=== PATIENT | female | born 1945 | race Caucasian/White ===

== ENCOUNTER 2019-09-08 10:11 | Observation (INO) ==
[2019-09-08] MEDS ORDERED: ACETAMINOPHEN 325 MG TABLET PO PRN (11:01)
[2019-09-08] MEDS ORDERED: ONDANSETRON 4 MG/2 ML VIAL IV PRN (11:01)
[2019-09-08 11:49] LABS: Basophils % 0.2 % (0.0-0.8); Eosinophils % 0.5 % (0.00-10.9); Hematocrit 41.8 VOL% (35.7-47.0); Hemoglobin 13.4 GM/DL (12.0-16.0); Immature Granulocytes % 0.3 %; Immature Granulocytes Absolute 0.02 #; Lymphocytes # 1.2 10*3/uL (1.4-4.0); Lymphocytes % 18.7 % (21.3-54.2); Mean Corpuscular HGB Conc 32.1 GM/DL (32-36); Mean Corpuscular Volume 88.2 FL (87-102); Mean Platelet Volume 10.1 FL (9.6-12.0); Monocytes % 10.4 % (1.7-12.7); Neutrophils % 69.9 % (38.7-73.9); Platelet Count 231 T/CUMM (130-400); Red Blood Count 4.74 MC/CUMM (3.8-5.5); Red Cell Distribution Width 13.6 % (9.3-17.3); White Blood Count 6.5 T/CUMM (4-12)
[2019-09-08] MEDS ORDERED: MEROPENEM 500 MG in SODIUM CHLORIDE 0.9% 100 ML IV SCH (12:00)
[2019-09-08] MEDS: PIPERACILLIN/TAZOBACTAM 3,375 MG in SODIUM CHLORIDE 0.9% 100 ML IV SCH ×2 (12:13→21:37)
[2019-09-08 12:19] LABS: Albumin 3.5 G/DL (3.4-5.0); Bilirubin,Total 0.8 MG/DL (0.2-1.0); Calcium 9.4 MG/DL (8.5-10.1); Total Protein 8.7 G/DL (6.4-8.3)
[2019-09-08] MEDS: ENOXAPARIN 40 MG/0.4 ML SYRINGE SUBCUT SCH (13:39)
[2019-09-08 20:21] LABS: Amorphous Crystals,Urine Occasional /HPF (Few); Apearance,Urine CLOUDY (Clear); Bacteria,Urine Occasional /HPF (Few); Bilirubin,Urine Negative (Negative); Blood, Urine Small mg/dL (Negative); Glucose,Urine (UA) Negative (Negative); Ketones,Urine Negative (Negative); Mucus,Urine Occasional /LPF (Occasional); Nitrite,Urine Negative (Negative); Protein,Urine Negative; RBC,Urine 3 /HPF (0-4); Squamous Epithelial Cell,Urine Occasional /HPF (0-10); Urine Color Yellow (Yellow); Urine Specific Gravity 1.015 (1.001-1.035); Urine Urobilinogen < 2.0 EU/DL (0.2-1.0)
[2019-09-08] MEDS: DOCUSATE SODIUM 100 MG CAPSULE PO SCH (21:37)
[2019-09-09] MEDS: PIPERACILLIN/TAZOBACTAM 3,375 MG in SODIUM CHLORIDE 0.9% 100 ML IV SCH ×3 (05:01→19:26)
[2019-09-09 05:50] LABS: Basophils % 0.3 % (0.0-0.8); Eosinophils # 0.1 10*3/uL (0.0-0.87); Eosinophils % 1.1 % (0.00-10.9); Hematocrit 39.2 VOL% (35.7-47.0); Hemoglobin 12.8 GM/DL (12.0-16.0); Immature Granulocytes % 0.3 %; Immature Granulocytes Absolute 0.02 #; Lymphocytes # 1.3 10*3/uL (1.4-4.0); Lymphocytes % 17.8 % (21.3-54.2); Mean Corpuscular HGB Conc 32.7 GM/DL (32-36); Mean Corpuscular Volume 87.3 FL (87-102); Mean Platelet Volume 9.9 FL (9.6-12.0); Monocytes % 10.1 % (1.7-12.7); Neutrophils % 70.4 % (38.7-73.9); Platelet Count 245 T/CUMM (130-400); Red Blood Count 4.49 MC/CUMM (3.8-5.5); Red Cell Distribution Width 13.5 % (9.3-17.3); White Blood Count 7.5 T/CUMM (4-12)
[2019-09-09 06:10] LABS: Albumin 3.2 G/DL (3.4-5.0); Calcium 9.1 MG/DL (8.5-10.1); Total Protein 8.1 G/DL (6.4-8.3)
[2019-09-09] MEDS: LOSARTAN 50 MG TABLET PO SCH (08:36)
[2019-09-09] MEDS: PANTOPRAZOLE 40 MG TABLET PO SCH (08:36)
[2019-09-09] MEDS: DOCUSATE SODIUM 100 MG CAPSULE PO SCH ×2 (08:36→20:23)
[2019-09-09] MEDS: hydroCHLOROthiazide 12.5 MG CAPSULE PO SCH (08:36)
[2019-09-09] MEDS ORDERED: diphenhydrAMINE CAP 25 MG CAPSULE PO ONE (09:29)
[2019-09-09] MEDS ORDERED: methylPREDNISolone SOD SUC 125 MG/2 ML VIAL IV ONE (09:30)
[2019-09-09] MEDS: ENOXAPARIN 40 MG/0.4 ML SYRINGE SUBCUT SCH (12:40)
[2019-09-09] MEDS ORDERED: hydrALAZINE 20 MG/1 ML VIAL IV PRN (14:46)
[2019-09-09] MEDS: DOXYCYCLINE HYCLATE 100 MG CAPSULE PO SCH (16:31)
[2019-09-10] MEDS: PIPERACILLIN/TAZOBACTAM 3,375 MG in SODIUM CHLORIDE 0.9% 100 ML IV SCH ×3 (03:26→21:18)
[2019-09-10] MEDS: PANTOPRAZOLE 40 MG TABLET PO SCH (09:14)
[2019-09-10] MEDS: DOCUSATE SODIUM 100 MG CAPSULE PO SCH ×2 (09:14→21:18)
[2019-09-10] MEDS: DOXYCYCLINE HYCLATE 100 MG CAPSULE PO SCH ×2 (09:14→16:13)
[2019-09-10] MEDS: hydroCHLOROthiazide 12.5 MG CAPSULE PO SCH (09:14)
[2019-09-10] MEDS: LOSARTAN 50 MG TABLET PO SCH (09:14)
[2019-09-10] MEDS: ENOXAPARIN 40 MG/0.4 ML SYRINGE SUBCUT SCH (11:45)
[2019-09-11] MEDS: PIPERACILLIN/TAZOBACTAM 3,375 MG in SODIUM CHLORIDE 0.9% 100 ML IV SCH (04:07)
[2019-09-11] MEDS: PANTOPRAZOLE 40 MG TABLET PO SCH (08:22)
[2019-09-11] MEDS: LOSARTAN 50 MG TABLET PO SCH (08:22)
[2019-09-11] MEDS: DOCUSATE SODIUM 100 MG CAPSULE PO SCH (08:22)
[2019-09-11] MEDS: DOXYCYCLINE HYCLATE 100 MG CAPSULE PO SCH (08:22)
[2019-09-11] MEDS: hydroCHLOROthiazide 12.5 MG CAPSULE PO SCH (08:22)
[2019-09-11 10:13] VITALS: BP 125/63
== END 2019-09-11 11:20 | disposition home or self-care (01) ==
LOC: N.5E
PROVIDERS: ADMIT Family Medicine; ATTEND Family Medicine

== ENCOUNTER 2022-06-23 05:27 | Inpatient (IN) ==
[2022-06-23] MEDS ORDERED: VANCOMYCIN INJ 1,000 MG in SODIUM CHLORIDE 0.9% 250 ML IV ONE (06:00)
[2022-06-23] MEDS ORDERED: ceFAZolin 2,000 MG/50 ML DUPLEX IV ONE (06:00)
[2022-06-23] MEDS ORDERED: LACTATED RINGERS 1,000 ML IV SCH (08:30)
[2022-06-23] MEDS ORDERED: BACITRACIN OINT 0.9 GM PACK TOP ONE (09:38)
[2022-06-23] MEDS ORDERED: propofoL 200 MG/20 ML VIAL IV ONE ×2 (10:07→12:16)
[2022-06-23] MEDS ORDERED: BUPIVACAINE SPINAL 0.75% 2 ML AMP SPINAL ONE (10:07)
[2022-06-23] MEDS ORDERED: fentaNYL 100 MCG/2 ML VIAL ONE (10:07)
[2022-06-23] MEDS ORDERED: LIDOCAINE 2% 5 ML VIAL ONE (10:07)
[2022-06-23] MEDS ORDERED: MIDAZOLAM 2 MG/2 ML VIAL ONE (10:07)
[2022-06-23] MEDS ORDERED: BUPIVACAINE MPF 0.5% 30 ML VIAL ONE (10:39)
[2022-06-23] MEDS ORDERED: LIDOCAINE 1% 5 ML VIAL ONE (10:40)
[2022-06-23] MEDS ORDERED: MAGNESIUM HYDROXIDE SUSP 30 ML UDCUP PO PRN (11:36)
[2022-06-23] MEDS ORDERED: diphenhydrAMINE CAP 25 MG CAPSULE PO PRN (11:37)
[2022-06-23] MEDS ORDERED: diphenhydrAMINE 50 MG/1 ML VIAL ONE (11:39)
[2022-06-23] MEDS ORDERED: TRANEXAMIC ACID 1,000 MG/10 ML VIAL ONE (12:31)
[2022-06-23] MEDS ORDERED: PHENYLEPHRINE 1 MG/10 ML SYRINGE IV ONE (12:47)
[2022-06-23] MEDS ORDERED: ePHEDrine 50 MG/ML VIAL ONE (12:49)
[2022-06-23] MEDS ORDERED: SODIUM CHLORIDE 0.9% 250 ML IV ONE (13:16)
[2022-06-23] MEDS: LACTATED RINGERS 1,000 ML IV SCH ×2 (14:48→20:55)
[2022-06-23] MEDS: MORPHINE 2 MG/1 ML SYRINGE IV PRN ×3 (15:30→22:57)
[2022-06-23] MEDS: APIXABAN 2.5 MG TABLET PO SCH (20:56)
[2022-06-23] MEDS: DOCUSATE SODIUM 100 MG CAPSULE PO SCH (20:56)
[2022-06-23] MEDS: POTASSIUM CHLORIDE 10 MEQ TABLET PO SCH (20:56)
[2022-06-24 03:19] LABS: Basophils % 0.1 % (0.0-0.8); Hemoglobin 11.6 GM/DL (12.0-16.0); Immature Granulocytes % 0.5 %; Immature Granulocytes Absolute 0.04 #; Lymphocytes # 0.7 10*3/uL (1.4-4.0); Lymphocytes % 8.5 % (21.3-54.2); Mean Corpuscular HGB Conc 32.2 GM/DL (32-36); Mean Corpuscular Volume 90.2 FL (87-102); Mean Platelet Volume 9.6 FL (9.6-12.0); Monocytes # 0.8 10*3/uL (0.11-0.8); Monocytes % 9.6 % (1.7-12.7); Neutrophils % 81.3 % (38.7-73.9); Platelet Count 174 T/CUMM (130-400); Red Blood Count 3.99 MC/CUMM (3.8-5.5); Red Cell Distribution Width 13.4 % (9.3-17.3); White Blood Count 8.6 T/CUMM (4-12)
[2022-06-24 03:33] LABS: Calcium 8.9 MG/DL (8.5-10.1); Osmolality,Calculated 276.7 MOS/KG (273-304); Potassium 3.5 MMOL/L (3.5-5.1)
[2022-06-24] MEDS: LACTATED RINGERS 1,000 ML IV SCH (04:28)
[2022-06-24] MEDS: MORPHINE 2 MG/1 ML SYRINGE IV PRN ×2 (04:32→04:48)
[2022-06-24] MEDS: DOCUSATE SODIUM 100 MG CAPSULE PO SCH ×2 (08:05→20:25)
[2022-06-24] MEDS: PANTOPRAZOLE 40 MG TABLET PO SCH (08:05)
[2022-06-24] MEDS: FENOFIBRATE 145 MG TABLET PO SCH (08:05)
[2022-06-24] MEDS: LETROZOLE 2.5 MG TABLET PO SCH (08:05)
[2022-06-24] MEDS: LOSARTAN 25 MG TABLET PO SCH (08:05)
[2022-06-24] MEDS: POTASSIUM CHLORIDE 10 MEQ TABLET PO SCH ×2 (08:06→20:25)
[2022-06-24] MEDS: APIXABAN 2.5 MG TABLET PO SCH ×2 (08:06→20:25)
[2022-06-24] MEDS ORDERED: traMADol 50 MG TABLET PO PRN (14:19)
[2022-06-24] MEDS ORDERED: hydrALAZINE 20 MG/1 ML VIAL IV PRN (14:19)
[2022-06-24] MEDS: ONDANSETRON 4 MG/2 ML VIAL IV PRN (17:18)
[2022-06-25 03:27] LABS: Basophils % 0.1 % (0.0-0.8); Eosinophils % 0.4 % (0.00-10.9); Hematocrit 33.8 VOL% (35.7-47.0); Immature Granulocytes % 0.5 %; Immature Granulocytes Absolute 0.04 #; Lymphocytes # 0.8 10*3/uL (1.4-4.0); Lymphocytes % 10.3 % (21.3-54.2); Mean Corpuscular HGB Conc 32.5 GM/DL (32-36); Mean Corpuscular Volume 89.9 FL (87-102); Mean Platelet Volume 9.9 FL (9.6-12.0); Monocytes # 0.8 10*3/uL (0.11-0.8); Neutrophils % 78.7 % (38.7-73.9); Platelet Count 154 T/CUMM (130-400); Red Blood Count 3.76 MC/CUMM (3.8-5.5); Red Cell Distribution Width 13.6 % (9.3-17.3); White Blood Count 8.1 T/CUMM (4-12)
[2022-06-25] MEDS: POTASSIUM CHLORIDE 10 MEQ TABLET PO SCH ×2 (08:09→20:50)
[2022-06-25] MEDS: APIXABAN 2.5 MG TABLET PO SCH ×2 (08:09→20:50)
[2022-06-25] MEDS: DOCUSATE SODIUM 100 MG CAPSULE PO SCH ×2 (08:09→20:50)
[2022-06-25] MEDS: PANTOPRAZOLE 40 MG TABLET PO SCH (08:10)
[2022-06-25] MEDS: LOSARTAN 25 MG TABLET PO SCH (08:10)
[2022-06-25] MEDS: LETROZOLE 2.5 MG TABLET PO SCH (08:10)
[2022-06-25] MEDS: FENOFIBRATE 145 MG TABLET PO SCH (08:10)
[2022-06-25] MEDS: ONDANSETRON 4 MG/2 ML VIAL IV PRN (13:48)
[2022-06-26 06:04] LABS: Basophils % 0.1 % (0.0-0.8); Eosinophils # 0.2 10*3/uL (0.0-0.87); Eosinophils % 2.1 % (0.00-10.9); Hematocrit 34.1 VOL% (35.7-47.0); Immature Granulocytes % 0.7 %; Immature Granulocytes Absolute 0.05 #; Lymphocytes # 0.7 10*3/uL (1.4-4.0); Lymphocytes % 8.8 % (21.3-54.2); Mean Corpuscular HGB Conc 32.3 GM/DL (32-36); Mean Corpuscular Volume 91.4 FL (87-102); Mean Platelet Volume 10.3 FL (9.6-12.0); Monocytes # 0.7 10*3/uL (0.11-0.8); Monocytes % 9.2 % (1.7-12.7); Neutrophils % 79.1 % (38.7-73.9); Platelet Count 175 T/CUMM (130-400); Red Blood Count 3.73 MC/CUMM (3.8-5.5); Red Cell Distribution Width 13.6 % (9.3-17.3); White Blood Count 7.5 T/CUMM (4-12)
[2022-06-26] MEDS: LETROZOLE 2.5 MG TABLET PO SCH (08:27)
[2022-06-26] MEDS: POTASSIUM CHLORIDE 10 MEQ TABLET PO SCH ×2 (08:28→20:19)
[2022-06-26] MEDS: DOCUSATE SODIUM 100 MG CAPSULE PO SCH ×2 (08:28→20:20)
[2022-06-26] MEDS: PANTOPRAZOLE 40 MG TABLET PO SCH (08:28)
[2022-06-26] MEDS: LOSARTAN 25 MG TABLET PO SCH (08:28)
[2022-06-26] MEDS: APIXABAN 2.5 MG TABLET PO SCH ×2 (08:28→20:20)
[2022-06-26] MEDS: FENOFIBRATE 145 MG TABLET PO SCH (08:28)
[2022-06-27 07:42] VITALS: BP 124/57
[2022-06-27] MEDS: LOSARTAN 25 MG TABLET PO SCH ×2 (07:50→08:48)
[2022-06-27] MEDS: APIXABAN 2.5 MG TABLET PO SCH ×2 (07:50→08:48)
[2022-06-27] MEDS: POTASSIUM CHLORIDE 10 MEQ TABLET PO SCH ×2 (07:50→08:52)
[2022-06-27] MEDS: PANTOPRAZOLE 40 MG TABLET PO SCH ×2 (07:50→08:59)
[2022-06-27] MEDS: FENOFIBRATE 145 MG TABLET PO SCH ×2 (07:50→08:59)
[2022-06-27] MEDS: DOCUSATE SODIUM 100 MG CAPSULE PO SCH ×2 (07:50→08:48)
[2022-06-27] MEDS: LETROZOLE 2.5 MG TABLET PO SCH ×2 (07:50→08:48)
== END 2022-06-27 10:58 | disposition swing bed (61) | DRG 470 ==
LOC: N.OR 05:27 → N.3E 05:27 → N.SDSINP 05:29 → N.3E 14:54
PROVIDERS: ADMIT Orthopaedic Surgery; ATTEND Orthopaedic Surgery